=== PATIENT | male | born 1960 | race Caucasian/White ===

== ENCOUNTER 2019-02-10 23:13 | Emergency (ER) | payer OTHER ==
[~2019-02-10] VITALS: Ht 180.3 cm; Wt 77.1 kg
[~2019-02-10 23:13] MED LIST: FISH1CAP PO; LISI-338 PO; METF500T16 PO
[2019-02-10] MEDS ORDERED: IV NORMAL SALINE 1000ML BAG 1,000 ML IV ONE (23:30)
--- NOTE | 2019-02-10 23:38 | PHYS DOC ---
Adult General Chief Complaint Chief Complaint: Palpitations HPI HPI Patient is a 58 year old male who presents with palpitations. Patient states that he went to bed around nine fifteen and subsequently woke up around ten thirty with palpitations. Patient further describes the sensation as fluttering in his chest. Patient states that his palpitations have gotten a little better , but are still present upon arrival. Patient denies having any similar symptoms in the past. Denies chest pain and shortness of breath. Denies any aggravating or alleviating factors. Denies any history of cardiac disease. Review of Systems Review of Systems Constitutional: Denies fever or chills Eyes: Denies change in visual acuity, or eye pain HENT: Denies nasal congestion or sore throat Respiratory: Denies cough or shortness of breath Cardiovascular: Denies chest pain. Reports palpitations GI: Denies abdominal pain, nausea, vomiting, or diarrhea : Denies dysuria or hematuria Musculoskeletal: Denies back pain or joint pain Integument: Denies rash or skin lesions Neurologic: Denies headache, focal weakness or sensory changes Complete systems were reviewed and found to be within normal limits, except as documented in this note. Current Medications Current Medications Current Medications Medications (Trade) Dose Ordered Sig/Lu Start Time Stop Time Status Last Admin Dose Admin Sodium Chloride 1,000 ml @ 1,000 mls/hr 1X ONCE 02/10/19 23:30 02/11/19 00:29 DC 02/10/19 23:41 1,000 MLS/HR Allergies Allergies Allergies Coded Allergies Type Severity Reaction Last Updated Verified No Known Drug Allergies 01/31/14 No Physical Exam Physical Exam Constitutional: Well developed, well nourished, no acute distress, non-toxic appearance. HENT: Normocephalic, atraumatic, oropharynx moist, no oral exudates, nose normal. Eyes: PERRL, conjunctiva normal, no discharge. Neck: Normal range of motion, supple, no stridor. Cardiovascular:Heart rate regular rhythm, no murmur Lungs & Thorax: Bilateral breath sounds clear to auscultation Abdomen: Soft, no tenderness on palpation Skin: Warm, dry, no erythema, no rash. Back: No tenderness, no CVA tenderness. Extremities: No tenderness, ROM intact, no edema. Neurologic: Alert and oriented X3, normal motor function, normal sensory function, no focal deficits noted. Psychologic: Affect normal, judgement normal, mood normal. Current Patient Data Vital Signs Vital Signs Date Time Temp Pulse Resp B/P (MAP) Pulse Ox O2 Delivery O2 Flow Rate FiO2 02/11/19 00:25 75 18 172/93 (119) 98 Room Air 02/10/19 23:17 98.3 98.3 Lab Values Laboratory Tests Test 02/10/19 23:39 White Blood Count 6.5 x10^3/uL (4.0-11.0) Red Blood Count 4.73 x10^6/uL (4.30-5.70) Hemoglobin 13.5 g/dL (13.0-17.5) Hematocrit 40.2 % (39.0-53.0) Mean Corpuscular Volume 85 fL (79-100) Mean Corpuscular Hemoglobin 29 pg (25-35) Mean Corpuscular Hemoglobin Concent 34 g/dL (31-37) Red Cell Distribution Width 13.1 % (11.5-14.5) Platelet Count 302 x10^3/uL (140-400) Neutrophils (%) (Auto) 40 % (31-73) Lymphocytes (%) (Auto) 41 % (24-48) Monocytes (%) (Auto) 10 % (0-9) H Eosinophils (%) (Auto) 8 % (0-3) H Basophils (%) (Auto) 1 % (0-3) Neutrophils # (Auto) 2.6 x10^3uL (1.8-7.7) Lymphocytes # (Auto) 2.7 x10^3/uL (1.0-4.8) Monocytes # (Auto) 0.7 x10^3/uL (0.0-1.1) Eosinophils # (Auto) 0.5 x10^3/uL (0.0-0.7) Basophils # (Auto) 0.1 x10^3/uL (0.0-0.2) Prothrombin Time 13.6 SEC (11.7-14.0) Prothrombin Time INR 1.1 (0.8-1.1) PTT 25 SEC (24-38) Sodium Level 137 mmol/L (136-145) Potassium Level 4.1 mmol/L (3.5-5.1) Chloride Level 100 mmol/L (98-107) Carbon Dioxide Level 26 mmol/L (21-32) Anion Gap 11 (6-14) Blood Urea Nitrogen 23 mg/dL (8-26) Creatinine 1.0 mg/dL (0.7-1.3) Estimated GFR (Cockcroft-Gault) 77.0 BUN/Creatinine Ratio 23 (6-20) H Glucose Level 281 mg/dL (70-99) H Calcium Level 8.8 mg/dL (8.5-10.1) Magnesium Level 2.0 mg/dL (1.8-2.4) Total Bilirubin 0.1 mg/dL (0.2-1.0) L Aspartate Amino Transferase (AST) 17 U/L (15-37) Alanine Aminotransferase (ALT) 31 U/L (16-63) Alkaline Phosphatase 103 U/L (46-116) Creatine Kinase 67 U/L (39-308) Creatine Kinase MB (Mass) 0.9 ng/mL (0.0-3.6) Creatine Kinase MB Relative Index % (0-4) Troponin I Quantitative < 0.017 ng/mL (0.000-0.055) RY-Saq-Q-Type Natriuretic Peptide 20 pg/mL (0-124) Total Protein 7.0 g/dL (6.4-8.2) Albumin 3.6 g/dL (3.4-5.0) Albumin/Globulin Ratio 1.1 (1.0-1.7) Lipase 207 U/L (73-393) Thyroid Stimulating Hormone (TSH) 2.455 uIU/mL (0.358-3.74) Free Thyroxine 0.97 ng/dL (0.76-1.46) Free Triiodothyronine (T3) pg/mL 2.64 pg/mL (2.18-3.98) Laboratory Tests 02/10/19 23:39 Laboratory Tests 02/10/19 23:39 EKG EKG @ 2331 NSR at 78bpm, NO ST elevation Radiology/Procedures Radiology/Procedures [] Course & Med Decision Making Course & Med Decision Making Patient is a 58 year old male who presents to the ED for palpitations. Patient given a liter of fluids in the ED. ECG reveals normal sinus rhythm. Patient is not tachycardic during ED stay. Pertinent Labs and Imaging studies reviewed. (See chart for details). Troponin is negative. Patient stable for discharge with outpatient follow-up with PCP. Discussed findings and plan with patient and family, who acknowledge understanding and agreement. Dragon Disclaimer Dragon Disclaimer This electronic medical record was generated, in whole or in part, using a voice recognition dictation system. Departure Departure Impression: Primary Impression: Palpitations Disposition: 01 HOME, SELF-CARE Condition: STABLE Referrals: AISHA BANKS (PCP) ZOHRA MONTES MD Patient Instructions: Palpitations, [id number] EWA CORTES DO Feb 10, 2019 23:37
[2019-02-10 23:48] LABS: BASO # 0.1 x10^3/uL (0.0-0.2); BASO % 1 % (0-3); EOS # 0.5 x10^3/uL (0.0-0.7); EOS % 8 % (0-3); HEMATOCRIT 40.2 % (39.0-53.0); HEMOGLOBIN 13.5 g/dL (13.0-17.5); LYMPH # 2.7 x10^3/uL (1.0-4.8); LYMPH % 41 % (24-48); MEAN CORPUSCULAR HEMOGLOBIN 29 pg (25-35); MEAN CORPUSCULAR HGB CONC 34 g/dL (31-37); MEAN CORPUSCULAR VOLUME 85 fL (79-100); MONO # 0.7 x10^3/uL (0.0-1.1); MONO % 10 % (0-9); NEUT # 2.6 x10^3uL (1.8-7.7); NEUT % 40 % (31-73); PLATELET COUNT 302 x10^3/uL (140-400); RED BLOOD COUNT 4.73 x10^6/uL (4.30-5.70); RED CELL DISTRIBUTION WIDTH 13.1 % (11.5-14.5); WHITE BLOOD COUNT 6.5 x10^3/uL (4.0-11.0)
[2019-02-10 23:58] LABS: PROTHROMBIN TIME PATIENT 13.6 SEC (11.7-14.0)
[2019-02-11 00:01] LABS: CALCIUM 8.8 mg/dL (8.5-10.1); POTASSIUM 4.1 mmol/L (3.5-5.1)
[2019-02-11 00:06] LABS: ALBUMIN 3.6 g/dL (3.4-5.0); ALBUMIN/GLOBULIN RATIO 1.1 (1.0-1.7); TOTAL BILIRUBIN 0.1 mg/dL (0.2-1.0)
[2019-02-11 00:16] LABS: CREATINE KINASE 67 U/L (39-308)
[2019-02-11 00:20] LABS: FREE T4 0.97 ng/dL (0.76-1.46); THYROID STIM HORMONE (TSH) 2.455 uIU/mL (0.358-3.74)
[2019-02-11 00:25] VITALS: BP 172/93
--- NOTE | 2019-02-11 06:24 | EKG ---
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
== END 2019-02-11 00:30 | disposition home or self-care (01) ==
LOC: ER 23:13
DX: R00.2 Palpitations (principal); I49.8 Other specified cardiac arrhythmias
CPT/HCPCS: 36415; 80053; 82553; 83690; 83735; 83880; 84439; 84443; 84481; 84484; 85025; 85610; 85730; 93005; 99285; J7030